=== PATIENT | female | born 1980 | race Hispanic/Latino ===

== ENCOUNTER 2022-01-23 21:27 | Emergency (ER) | payer OTHER ==
[~2022-01-23] VITALS: Ht 195.6 cm; Wt 65.8 kg
[2022-01-23] MEDS ORDERED: AZITHROMYCIN250 MG PO (22:07)
[2022-01-23] MEDS ORDERED: VENTOLIN HFA18 GM INH (22:07)
[2022-01-23] MEDS ORDERED: PREDNISONE20 MG PO (22:07)
== END 2022-01-23 22:22 | disposition home or self-care (01) ==
LOC: ER 21:36
DX: R05.9 Cough, unspecified (principal); U07.1 COVID-19; D64.9 Anemia, unspecified; F41.9 Anxiety disorder, unspecified; F31.9 Bipolar disorder, unspecified; F98.8 Other specified behavioral and emotional disorders with onset usually occurring in childhood and adolescence
CPT/HCPCS: 99282

== ENCOUNTER 2022-02-16 17:32 | Emergency (ER) | payer OTHER ==
[~2022-02-16] VITALS: Ht 149.9 cm; Wt 65.8 kg
[~2022-02-16 17:32] MED LIST: AZITHROMYCIN250 MG PO; PREDNISONE20 MG PO; VENTOLIN HFA18 GM INH
== END 2022-02-16 17:51 | disposition home or self-care (01) ==
LOC: ER 17:35
DX: B99.8 Other infectious disease (principal); B95.8 Unspecified staphylococcus as the cause of diseases classified elsewhere; F31.9 Bipolar disorder, unspecified
CPT/HCPCS: 99282

== ENCOUNTER 2022-03-21 05:46 | Emergency (ER) | payer OTHER ==
[~2022-03-21] VITALS: Ht 149.9 cm; Wt 65.8 kg
[2022-03-21] MEDS ORDERED: METHYLPREDNISOLO4 M1 PO (06:31)
== END 2022-03-21 07:08 | disposition home or self-care (01) ==
LOC: ER 05:50
DX: R21 Rash and other nonspecific skin eruption (principal); T50.995A Adverse effect of other drugs, medicaments and biological substances, initial encounter; D64.9 Anemia, unspecified; F41.9 Anxiety disorder, unspecified; F31.9 Bipolar disorder, unspecified
CPT/HCPCS: 99282

== ENCOUNTER 2024-06-12 17:35 | Inpatient (IN) | payer SELFPAY ==
[~2024-06-12] VITALS: Ht 149.9 cm; Wt 73.9 kg
[~2024-06-12 17:35] MED LIST changes: +METHYLPREDNISOLO4 M1 PO
[2024-06-12 17:50] VITALS: PULSE 95; RESP 16; TEMP 97.8
[2024-06-12 18:22] LABS: BASOPHILS # (AUTO) 0.1 (0.0-0.1); BASOPHILS % 0.5 % (0.0-1.0); EOSINOPHILS # (AUTO) 0.5 (0.0-0.4); EOSINOPHILS % 3.9 % (0.0-6.0); HEMATOCRIT 35.9 % (34.2-44.1); HEMOGLOBIN 10.3 g/dL (12.0-16.0); LYMPHOCYTES # (AUTO) 1.9 (1.0-3.2); LYMPHOCYTES % 14.7 % (18.0-39.1); MEAN CORPUSCULAR HEMOGLOBIN 22.8 pg (28-32); MEAN CORPUSCULAR HGB CONC 28.7 g/dL (31-35); MEAN CORPUSCULAR VOLUME 79.4 fL (81-99); MONOCYTES # (AUTO) 1.3 (0.2-0.8); NEUTROPHILS # (AUTO) 9.2 (2.1-6.9); NEUTROPHILS % 70.5 % (38.7-80.0); PLATELET COUNT 417 x10e3/uL (140-360); RED BLOOD COUNT 4.52 x10e6/uL (3.6-5.1); RED CELL DISTRIBUTION WIDTH 15.3 % (11.7-14.4); WHITE BLOOD COUNT 13.05 x10e3/uL (4.8-10.8)
[2024-06-12 18:23] LABS: BILIRUBIN,URINE NEGATIVE (NEGATIVE); CLARITY,URINE CLOUDY (CLEAR); COLOR,URINE YELLOW (YELLOW); GLUCOSE, URINE NEGATIVE (NEGATIVE); KETONES,URINE NEGATIVE (NEGATIVE); LEUKOCYTE ESTERASE ,URINE SMALL (NEGATIVE); NITRITE,URINE POSITIVE (NEGATIVE); PH,URINE 6 (5 - 7); PROTEIN,URINE DIPSTICK 2+ (NEGATIVE); URINE UROBILINOGEN 0.2 mg/dL (0.2 - 1)
[2024-06-12 18:25] LABS: PREGNANCY TEST, URINE NEGATIVE (NEGATIVE)
[2024-06-12] MEDS: KETOROLAC TROMETHAMINE 30 MG/ML VIAL IV STA (18:30)
[2024-06-12] MEDS: ONDANSETRON HCL INJ 2MG/ML 2ML 2 MG/ML VIAL IV STA (18:30)
[2024-06-12] MEDS: SODIUM CHLORIDE 0.9% 1000ML 1,000 ML IV STA (18:30)
[2024-06-12 18:35] LABS: BACTERIA,URINE MODERATE /HPF; WBC,URINE (MAN) 21-50 /HPF (0-5)
[2024-06-12 18:38] LABS: ALBUMIN 3.4 g/dL (3.5-5.0); ALBUMIN/GLOBULIN RATIO 0.9 (0.8-2.0); ANION GAP 12.8 mmol/L (8-16); BILIRUBIN,TOTAL 0.2 mg/dL (0.2-1.2); CALCIUM 9.9 mg/dL (8.4-10.2); CREATININE, SERUM 0.81 mg/dL (0.57-1.11); POTASSIUM 3.8 mmol/L (3.5-5.1); TOTAL PROTEIN 7.3 g/dL (6.5-8.1)
[2024-06-12] MEDS: ONDANSETRON HCL 4 MG ORAL DISINTEGRATING TAB PO STA (19:05)
[2024-06-12] MEDS ORDERED: ATIVAN1 MG PO (20:59)
[2024-06-12] MEDS ORDERED: ADDERALL 30 MG30 MG (20:59)
[2024-06-12 21:00] VITALS: BP 102/65; PULSE 86; RESP 20; TEMP 97.4; O2SAT 100
[2024-06-12] MEDS: SODIUM CHLORIDE 0.9% 1000ML 1,000 ML IV SCH (21:26)
[2024-06-12] MEDS: Morphine 4mg INJECTION 4 MG/ML INJ IV PRN (21:27)
[2024-06-12] MEDS: ONDANSETRON HCL INJ 2MG/ML 2ML 2 MG/ML VIAL IV PRN (21:27)
[2024-06-12 21:30] VITALS: BP 102/65; PULSE 86; RESP 20; TEMP 97.4; O2SAT 100
[2024-06-12 22:00] VITALS: BP 102/65; PULSE 86; RESP 20; TEMP 97.4; O2SAT 100
[2024-06-13] VITALS (9 sets, daily range): BP systolic 100–119; BP diastolic 58–71; PULSE 89–97; RESP 17–19; TEMP 97.1–99.1; O2SAT 96–100
[2024-06-13] MEDS: KETOROLAC TROMETHAMINE 30 MG/ML VIAL IV PRN (02:41)
[2024-06-13 06:14] LABS: BASOPHILS # (AUTO) 0.1 (0.0-0.1); BASOPHILS % 0.4 % (0.0-1.0); EOSINOPHILS # (AUTO) 0.4 (0.0-0.4); HEMATOCRIT 31.7 % (34.2-44.1); HEMOGLOBIN 9.2 g/dL (12.0-16.0); LYMPHOCYTES # (AUTO) 1.6 (1.0-3.2); LYMPHOCYTES % 12.8 % (18.0-39.1); MEAN CORPUSCULAR HEMOGLOBIN 22.8 pg (28-32); MEAN CORPUSCULAR VOLUME 78.7 fL (81-99); MONOCYTES # (AUTO) 1.2 (0.2-0.8); MONOCYTES % 9.2 % (4.4-11.3); NEUTROPHILS # (AUTO) 9.5 (2.1-6.9); NEUTROPHILS % 74.1 % (38.7-80.0); PLATELET COUNT 378 x10e3/uL (140-360); RED BLOOD COUNT 4.03 x10e6/uL (3.6-5.1); RED CELL DISTRIBUTION WIDTH 15.2 % (11.7-14.4); WHITE BLOOD COUNT 12.79 x10e3/uL (4.8-10.8)
[2024-06-13 06:44] LABS: ALBUMIN 2.8 g/dL (3.5-5.0); ALBUMIN/GLOBULIN RATIO 0.8 (0.8-2.0); ANION GAP 12.8 mmol/L (8-16); BILIRUBIN,TOTAL 0.3 mg/dL (0.2-1.2); CALCIUM 8.4 mg/dL (8.4-10.2); CREATININE, SERUM 0.78 mg/dL (0.57-1.11); POTASSIUM 3.8 mmol/L (3.5-5.1); TOTAL PROTEIN 6.1 g/dL (6.5-8.1)
[2024-06-13] MEDS ORDERED: ALBUTEROL SULF 0.083% NEB SOLN 3 ML NEB INH PRN ×2 (10:30→10:45)
[2024-06-13] MEDS ORDERED: KETOROLAC TROMETHAMINE 30 MG/ML VIAL IV PRN (10:30)
[2024-06-13] MEDS: PREGABALIN 25 MG CAP PO SCH (11:25)
[2024-06-13] MEDS: HYDROCODONE/APAP 10MG-325MG TAB PO PRN (15:09)
[2024-06-13] MEDS: CELECOXIB 200 MG CAP PO SCH (16:41)
[2024-06-14] VITALS (8 sets, daily range): BP systolic 94–109; BP diastolic 53–73; PULSE 86–104; RESP 18–20; TEMP 97.8–98.3; O2SAT 95–100
[2024-06-14 06:01] LABS: BASOPHILS # (AUTO) 0.1 (0.0-0.1); BASOPHILS % 0.5 % (0.0-1.0); EOSINOPHILS # (AUTO) 0.5 (0.0-0.4); EOSINOPHILS % 4.7 % (0.0-6.0); HEMATOCRIT 27.7 % (34.2-44.1); HEMOGLOBIN 7.9 g/dL (12.0-16.0); LYMPHOCYTES # (AUTO) 2.2 (1.0-3.2); LYMPHOCYTES % 20.6 % (18.0-39.1); MEAN CORPUSCULAR HEMOGLOBIN 22.7 pg (28-32); MEAN CORPUSCULAR HGB CONC 28.5 g/dL (31-35); MEAN CORPUSCULAR VOLUME 79.6 fL (81-99); MONOCYTES # (AUTO) 1.4 (0.2-0.8); MONOCYTES % 13.5 % (4.4-11.3); NEUTROPHILS # (AUTO) 6.4 (2.1-6.9); NEUTROPHILS % 59.9 % (38.7-80.0); PLATELET COUNT 395 x10e3/uL (140-360); RED BLOOD COUNT 3.48 x10e6/uL (3.6-5.1); RED CELL DISTRIBUTION WIDTH 15.3 % (11.7-14.4); WHITE BLOOD COUNT 10.67 x10e3/uL (4.8-10.8)
[2024-06-14 06:14] LABS: ANION GAP 12.8 mmol/L (8-16); CALCIUM 8.2 mg/dL (8.4-10.2); CREATININE, SERUM 0.93 mg/dL (0.57-1.11); POTASSIUM 3.8 mmol/L (3.5-5.1)
[2024-06-14] MEDS: LORAZEPAM 1 MG TAB PO SCH (12:55)
[2024-06-15] VITALS (10 sets, daily range): BP systolic 109–121; BP diastolic 69–90; PULSE 85–93; RESP 18–21; TEMP 97.3–98.1; O2SAT 96–100
[2024-06-15] MEDS ORDERED: SODIUM CHLORIDE 0.9% 100 ML ONE (15:52)
[2024-06-15] MEDS: CEFTRIAXONE 2 GM in SODIUM CHLORIDE 0.9% 100 ML IV SCH (15:58)
[2024-06-16] VITALS (8 sets, daily range): BP systolic 104–133; BP diastolic 69–86; PULSE 71–85; RESP 17–20; TEMP 97.2–98.3; O2SAT 95–98
[2024-06-16] MEDS ORDERED: KETOROLAC TROMETHAMINE 30 MG/ML VIAL IV PRN (09:15)
[2024-06-17] VITALS: BP 127/85; PULSE 79; RESP 20; TEMP 97.5; O2SAT 96
[2024-06-17 04:00] VITALS: BP 144/87; PULSE 89; RESP 17; TEMP 97.6; O2SAT 95
[2024-06-17] MEDS ORDERED: MIDAZOLAM HCL 2 MG/2 ML VIAL ONE (06:42)
[2024-06-17] MEDS ORDERED: PROPOFOL IV EMULSION 10 MG/ML 20 ML VIAL ONE (06:42)
[2024-06-17] MEDS ORDERED: FENTANYL CITRATE/PF 100MCG/2 ML INJ ONE (06:42)
[2024-06-17] MEDS ORDERED: LIDOCAINE HCL 2% LOCAL INJ 5 ML SDV VIAL INJ ONE (06:44)
[2024-06-17] MEDS ORDERED: ONDANSETRON HCL INJ 2MG/ML 2ML 2 MG/ML VIAL ONE (07:15)
[2024-06-17] MEDS ORDERED: DEXAMETHASONE SOD PHOS INJ 4 MG/ML SDV ONE (07:15)
[2024-06-17 07:36] VITALS: PULSE 76; RESP 20; O2SAT 98
[2024-06-17 09:00] VITALS: BP 127/81; PULSE 63; PULSE 80; PULSE 90; RESP 20; TEMP 97; O2SAT 96
[2024-06-17 12:00] VITALS: BP 140/86; PULSE 89; RESP 19; TEMP 98; O2SAT 96
[2024-06-17 16:00] VITALS: BP 127/81; PULSE 63; RESP 18; TEMP 97.8; O2SAT 96
== END 2024-06-17 17:00 | disposition home or self-care (01) | DRG 699 ==
LOC: ER 18:06 → ERHOLD 19:44 → MED/SURG2 20:44
PROVIDERS: ADMIT Internal Medicine; ATTEND Internal Medicine
PROC: 0TP98DZ Removal of Intraluminal Device from Ureter, Via Natural or Artificial Opening Endoscopic (ICD-10-PCS; principal; 2024-06-17 07:01)
DX: T83.593A Infection and inflammatory reaction due to other urinary stents, initial encounter (principal); N13.6 Pyonephrosis; Z16.11 Resistance to penicillins; N13.9 Obstructive and reflux uropathy, unspecified; B96.20 Unspecified Escherichia coli [E. coli] as the cause of diseases classified elsewhere; Z79.52 Long term (current) use of systemic steroids; Z96.0 Presence of urogenital implants; Z88.8 Allergy status to other drugs, medicaments and biological substances; Y83.1 Surgical operation with implant of artificial internal device as the cause of abnormal reaction of the patient, or of later complication, without mention of misadventure at the time of the procedure
CPT/HCPCS: 36415; 74018; 74176; 74420; 80048; 80053; 81001; 81025; 83690; 85025; 87086; 87186; 94799; 99284; C1758; J0696; J1100; J1885; J2003; J2250; J2270; J2405; J2543; J7030; J7050